=== PATIENT | male | born 1955 | race Caucasian/White ===

== ENCOUNTER 2016-05-07 11:04 | Emergency (ER) | payer OTHER ==
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
--- NOTE | 2016-05-07 16:35 | ED MED RECONCILIATION SUMMARY ---
Patient: PATEL BRASWELL Medication Reconciliation Report [facility] VisitID: [id number] [address] [place] [address] 61y, M Registration Date/Time: 05/07/2016 Weight: 79.3 kg Height/Length: 73 in. BMI: 23.1 ALLERGIES: No Known Drug Allergy The patient's Home Medications are listed below: STOP TAKING THE FOLLOWING MEDICATIONS: Naprosyn Oral CONTINUE TAKING THE FOLLOWING MEDICATIONS: Liquid version of marijuana, no THC in it. Puts it in his coffee. The source(s) of the original Home Medication information: Not obtained. The following Medications were given to the patient in the Emergency Department: None. The following Medications were prescribed to the patient: Diclofenac 50 mg tablets: take 1 tablet orally every 8 hours as needed for pain or stiffness. Dispense thirty (30). No refill. -- Ranjith Guerra Dr.
--- NOTE | 2016-05-07 16:35 | ED DISCHARGE INSTRUCTIONS ---
Patient: PATEL BRASWELL General Instructions [facility] VisitID: [id number] [address] [place] [address] 61y, M Registration Date/Time: 05/07/2016 Traumatic right olecranon bursitis. INSTRUCTIONS Apply ice for 20 minutes four times a day until better. Don't apply ice directly to skin. Your Current Medications: STOP TAKING THE FOLLOWING MEDICATIONS: Naprosyn Oral. CONTINUE TAKING THE FOLLOWING MEDICATIONS: Liquid version of marijuana, no THC in it. Puts it in his coffee. *. Prescription Medications: Diclofenac 50 mg tablets: take 1 tablet orally every 8 hours as needed for pain or stiffness. Dispense thirty (30). No refill. Follow-up: Screening today revealed the patient's blood pressure to be in the hypertensive range. The patient should follow up with a primary care provider for blood pressure management. Follow-up with: [facility], , [address], , [place], [id number] Follow up in about two days. Call for an appointment. ADDITIONAL INFORMATION Bursitis The larger joints of the body are surrounded bybursa. These are small, flat fluid-filled sacs which help the gliding motion of the muscles and tendons over the joints. Bursitis is an inflammation of the bursa due to injury, overuse of the joint, or infection of the bursa itself. Symptoms include pain and tenderness over a joint that is made worse with movement. Bursitis is treated with an anti-inflammatory medicine and by resting the joint. More severe cases require injection of medicine directly into the bursa. Home Care: Apply an ice pack (ice cubes in a plastic bag, wrapped in a towel) over the injured area for 20 minutes every 1-2 hours the first day. Continue this 3-4 times a day until the pain and swelling improves. Rest the painful joint and protect it from movement. This will allow the inflammation to heal faster. You may take ibuprofen (Motrin, Advil) or naproxen (Aleve, Naprosyn) to treat pain and inflammation, unless another medicine was prescribed. If you can't take these medicines, acetaminophen (Tylenol) may help with the pain, but does not treat inflammation. [NOTE: If you have chronic liver or kidney disease or ever had a stomach ulcer or GI bleeding, talk with your doctor before using these medicines.] As your symptoms improve, begin gradual motion at the joint. Do not overuse the joint, which may cause the symptoms to flare up again. Follow Up With Your Doctor If Not Improving After Three Days Of Treatment. Get Prompt Medical Attention If Any Of The Following Occur: Redness over the painful area Increasing pain or swelling at the joint Fever of 100.4F (38C) or higher, or as directed by your healthcare provider You have been given the following additional information: Bursitis (Electronically signed by Ranjith Guerra Dr. 05/07/2016 16:35)
--- NOTE | 2016-05-07 16:35 | ED DISCHARGE INSTRUCTIONS ---
Patient: PATEL BRASWELL General Instructions [facility] VisitID: [id number] [address] [place] [address] 61y, M Registration Date/Time: 05/07/2016 Traumatic right olecranon bursitis. INSTRUCTIONS Apply ice for 20 minutes four times a day until better. Don't apply ice directly to skin. Your Current Medications: STOP TAKING THE FOLLOWING MEDICATIONS: Naprosyn Oral. CONTINUE TAKING THE FOLLOWING MEDICATIONS: Liquid version of marijuana, no THC in it. Puts it in his coffee. *. Prescription Medications: Diclofenac 50 mg tablets: take 1 tablet orally every 8 hours as needed for pain or stiffness. Dispense thirty (30). No refill. Follow-up: Screening today revealed the patient's blood pressure to be in the hypertensive range. The patient should follow up with a primary care provider for blood pressure management. Follow[facility]up with: [facility], , [address], , [place], [id number] Follow up in about two days. Call for an appointment. ADDITIONAL INFORMATION Bursitis The larger joints of the body are surrounded bybursa. These are small, flat fluid-filled sacs which help the gliding motion of the muscles and tendons over the joints. Bursitis is an inflammation of the bursa due to injury, overuse of the joint, or infection of the bursa itself. Symptoms include pain and tenderness over a joint that is made worse with movement. Bursitis is treated with an anti-inflammatory medicine and by resting the joint. More severe cases require injection of medicine directly into the bursa. Home Care: Apply an ice pack (ice cubes in a plastic bag, wrapped in a towel) over the injured area for 20 minutes every 1-2 hours the first day. Continue this 3-4 times a day until the pain and swelling improves. Rest the painful joint and protect it from movement. This will allow the inflammation to heal faster. You may take ibuprofen (Motrin, Advil) or naproxen (Aleve, Naprosyn) to treat pain and inflammation, unless another medicine was prescribed. If you can't take these medicines, acetaminophen (Tylenol) may help with the pain, but does not treat inflammation. [NOTE: If you have chronic liver or kidney disease or ever had a stomach ulcer or GI bleeding, talk with your doctor before using these medicines.] As your symptoms improve, begin gradual motion at the joint. Do not overuse the joint, which may cause the symptoms to flare up again. Follow Up With Your Doctor If Not Improving After Three Days Of Treatment. Get Prompt Medical Attention If Any Of The Following Occur: Redness over the painful area Increasing pain or swelling at the joint Fever of 100.4F (38C) or higher, or as directed by your healthcare provider You have been given the following additional information: Bursitis (Electronically signed by Ranjith Guerra Dr. 05/07/2016 16:35)
--- NOTE | 2016-05-07 16:35 | ED MAR SUMMARY ---
..... Medication Administration Record [facility] [address] [place], [place] [id number] Patient: PATEL BRASWELL Visit ID: [id number] 61y, M Weight: 79.3 kg Height/Length: 73 in BMI: 23.1 ALLERGIES: No Known Drug Allergy
--- NOTE | 2016-05-07 16:35 | ED MAR SUMMARY ---
..... Medication Administration Record [facility] [address] [place], [place] [id number] Patient: PATEL BRASWELL Visit ID: [id number] 61y, M Weight: 79.3 kg Height/Length: 73 in BMI: 23.1 ALLERGIES: No Known Drug Allergy
--- NOTE | 2016-05-07 16:35 | ED MED RECONCILIATION SUMMARY ---
Patient: PATEL BRASWELL Medication Reconciliation Report [facility] VisitID: [id number] [address] [place] [address] 61y, M Registration Date/Time: 05/07/2016 Weight: 79.3 kg Height/Length: 73 in. BMI: 23.1 ALLERGIES: No Known Drug Allergy The patient's Home Medications are listed below: STOP TAKING THE FOLLOWING MEDICATIONS: Naprosyn Oral CONTINUE TAKING THE FOLLOWING MEDICATIONS: Liquid version of marijuana, no THC in it. Puts it in his coffee. The source(s) of the original Home Medication information: Not obtained. The following Medications were given to the patient in the Emergency Department: None. The following Medications were prescribed to the patient: Diclofenac 50 mg tablets: take 1 tablet orally every 8 hours as needed for pain or stiffness. Dispense thirty (30). No refill. -- Ranjith Guerra Dr.
== END 2016-05-07 11:44 | disposition home or self-care (01) ==
LOC: ED SRH 11:04
DX: M70.21 Olecranon bursitis, right elbow (principal); V43.52XA Car driver injured in collision with other type car in traffic accident, initial encounter; Z79.1 Long term (current) use of non-steroidal anti-inflammatories (NSAID); F17.210 Nicotine dependence, cigarettes, uncomplicated